=== PATIENT | male | born 1990 | race American Indian/Alaskan Native ===

== ENCOUNTER 2016-11-07 15:55 | Emergency (ER) | payer OTHER ==
[2016-11-07 16:56] VITALS: BP 116/79
== END 2016-11-07 19:50 | disposition left against medical advice (07) ==
LOC: ED 15:55
DX: M54.2 Cervicalgia (principal); M54.6 Pain in thoracic spine; M79.605 Pain in left leg; Z53.21 Procedure and treatment not carried out due to patient leaving prior to being seen by health care provider